=== PATIENT | female | born 1995 | race Hispanic/Latino ===

== ENCOUNTER → 2016-12-15 | Day surgery (SDC) | payer MEDICAID, OTHER ==
[~2016-12-15] MED LIST: FLU VACC QS2017-18 36 mo. & older 0.5 ML SYRINGE IM ONE
[2016-12-15 15:54] VITALS: BMI 41.8
--- NOTE | 2016-12-15 17:48 | PRG ---
DATE OF SERVICE: 12/15/2016 PRESENTING COMPLAINT: Suprapubic pain and pressure, I wanted to get baby checked on. HISTORY OF PRESENT ILLNESS: Ms. Khan is a 21-year-old primigravida with EDC of 01/08/2017 placi ng her at 36 weeks and 6 days. She received her antepartum care in [place], [place]. Has been visitin g her mother here in [facility] over the past 3 weeks. She is returning to [place] in apr oximately 6-7 days. She presents complaining of mild contractions and pressure in her pelvis and ac tive fetus. She is concerned about her baby since she has not been keeping her OB visits in [place]. 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 She does not know her blood ty pe. PAST MEDICAL HISTORY: Obesity. PAST SURGICAL HISTORY: Gastric bypass. SOCIAL HISTORY: Denies tobacco, alcohol, IV drug abuse. ALLERGIES: Denies. MEDICATIONS: vitamins. FAMILY HISTORY: Noncontributory. PHYSICAL EXAMINATION: GENERAL: female in no acute distress. Vital signs: Initial pulse was 120, current pulse 98, respirations 18, temperature 98.2, blood pres sure 118/72. HEENT: Within normal limits. LUNGS: Clear to auscultation bilaterally. HEART: Regular rate and rhythm. ABDOMEN: Soft and nontender with a fundal height of 37 cm. FHTs are 140s. PELVIC: Vulva is without lesions. Vagina is without discharge. Cervix is fingertip long, and high , cephalic blots with ease. No fluid noted. EXTREMITIES: Without clubbing, cyanosis or edema. IMAGING: monitoring was carried out for 20 minutes, which revealed a category 1 heart r ate tracing. No contractions, baseline was 130s to 140s, positive accelerations to 160s to 180s. IMPRESSION: Third trimester, insufficient care, out of town care. PLAN: Labor precautions, group B strep collected, patient instructed that the best course of action would be to return home and continue follow up with her OB in [place].
== END ==
LOC: L&D/OP 14:11
PROVIDERS: ATTEND Obstetrics & Gynecology
DX: O09.33 Supervision of pregnancy with insufficient antenatal care, third trimester (principal); O99.89 Other specified diseases and conditions complicating pregnancy, childbirth and the puerperium; R10.30 Lower abdominal pain, unspecified; O99.213 Obesity complicating pregnancy, third trimester; E66.9 Obesity, unspecified; Z68.41 Body mass index [BMI] 40.0-44.9, adult; Z79.899 Other long term (current) drug therapy; Z3A.36 36 weeks gestation of pregnancy; Z98.84 Bariatric surgery status
CPT/HCPCS: 87081

== ENCOUNTER 2019-07-28 21:07 | Emergency (ER) | payer MEDICAID, SELFPAY ==
[2019-07-28 22:18] LABS: #Basophils 0.1 thou/uL (0.0-0.2); #Monocytes 0.6 thou/uL (0.11-0.59); #Neutrophils 2.7 thou/uL (1.40-6.50); %Basophils 1.6 % (0.0-1.0); %Eosinophils 0.9 % (0.0-10.0); %Lymphocytes 36.9 % (21.0-51.0); %Monocytes 10.7 % (0.0-10.0); %Neutrophils 49.9 % (42.0-75.0); Hemoglobin 7.4 g/dL (12.0-16.0); Hypochromia SLIGHT = 6-15 cells (100X) (0-5/hpf); MDiff Complete? YES; Mean Corpuscular HGB CONC 28.6 g/dL (32.0-36.0); Mean Platelet Volume 11.3 fL (7.4-10.4); Microcytosis SLIGHT = 6-15 cells (100X) (0-5/hpf); Platelet Count 336 thou/uL (130-400); Platelet Morphology Comment Appears Adequate; RBC Distribution Width 17.9 % (11.5-14.5); White Blood Cell (WBC) Count 5.4 thou/uL (4.8-10.8)
[2019-07-28 22:25] LABS: ALT (SGPT) 18 U/L (8-55); AST (SGOT) 27 U/L (5-34); Albumin 4.1 g/dL (3.5-5.0); Alkaline Phosphatase 63 U/L (40-110); Anion Gap 12 mmol/L (10-20); BUN (Urea Nitrogen) 11 mg/dL (7.0-18.7); Bilirubin, Total 0.2 mg/dL (0.2-1.2); Calc. Creatinine Clearance 0 mL/min (70-130); Calcium 8.5 mg/dL (7.8-10.44); Carbon Dioxide 23 mmol/L (22-29); Chloride 107 mmol/L (98-107); Estimated GFR-MDRD Greater than 90; Globulin 3.1 g/dL (2.4-3.5); Glucose 81 mg/dL (70-105); Lipase 40 U/L (8-78); Potassium 4.3 mmol/L (3.5-5.1); Protein, Total 7.2 g/dL (6.0-8.3); Sodium 138 mmol/L (136-145)
[2019-07-28 23:09] LABS: Bilirubin Negative (Negative); Blood, Urine Negative (Negative); Clarity Clear (Clear); Glucose, Urine (Dipstick) Normal (Negative); Leukocyte Negative Leu/uL (Negative); Nitrite Negative (Negative); Protein, Urine (Dipstick) Negative (Neg-Trace); Urobilinogen Normal mg/dL (Less than 2)
[2019-07-28 23:10] LABS: Pregnancy Test - Urine (BHCG) Negative (Negative); Pregu Control Background? CLEAR/WHITE (CLR/WHITE); Pregu Control Bar Appear? YES (CONTROL BAR); Specific Gravity 1.023 (1.002-1.036)
== END 2019-07-28 23:36 | disposition home or self-care (01) ==
LOC: ERS 21:07
DX: D64.9 Anemia, unspecified (principal); R10.13 Epigastric pain; F17.210 Nicotine dependence, cigarettes, uncomplicated
CPT/HCPCS: 36415; 80053; 81003; 81025; 83690; 85025; 85060; 99284

== ENCOUNTER 2020-11-23 12:26 | Emergency (ER) | payer SELFPAY ==
[2020-11-23] MEDS ORDERED: Lidocaine 1% PF 5 ML VIAL ONE (13:22)
== END 2020-11-23 14:17 | disposition home or self-care (01) ==
LOC: ERS 12:26
DX: N61.1 Abscess of the breast and nipple (principal); F17.210 Nicotine dependence, cigarettes, uncomplicated
CPT/HCPCS: 10160

== ENCOUNTER 2023-09-29 21:53 | Emergency (ER) | payer SELFPAY ==
[2023-09-29 22:18] LABS: #Basophils 0.03 10x3/uL (0.0-0.2); %Basophils 0.5 % (0.0-1.0); %Lymphocytes 27.2 % (21.0-51.0); %Monocytes 11.2 % (0.0-10.0); %Neutrophils 59.9 % (42.0-75.0); Hematocrit 30.9 % (36.0-47.0); Hemoglobin 10.3 g/dL (12.0-16.0); Mean Corpuscular HGB CONC 33.3 g/dL (32.0-36.0); Mean Corpuscular Hemoglobin 29.4 pg (27.0-31.0); Mean Corpuscular Volume 88.3 fL (78.0-98.0); Mean Platelet Volume 8.4 fL (7.4-10.4); Platelet Count 260 10x3/uL (130-400); RBC Distribution Width 13.3 % (11.5-14.5)
[2023-09-29 22:32] LABS: ALT (SGPT) 19 U/L (8-55); AST (SGOT) 23 U/L (5-34); Albumin 2.9 g/dL (3.5-5.0); Alkaline Phosphatase 70 U/L (40-110); Anion Gap 13 mmol/L (10-20); BUN (Urea Nitrogen) 8 mg/dL (7.0-18.7); Bilirubin, Total 0.3 mg/dL (0.2-1.2); Calc. Creatinine Clearance 0 mL/min (70-130); Calcium 8.1 mg/dL (7.8-10.44); Carbon Dioxide 21 mmol/L (22-29); Chloride 106 mmol/L (98-107); Estimated GFR 112; Globulin 3.5 g/dL (2.4-3.5); Glucose 74 mg/dL (70-105); Potassium 3.7 mmol/L (3.5-5.1); Protein, Total 6.4 g/dL (6.0-8.3); Sodium 136 mmol/L (136-145)
[2023-09-30 04:52] LABS: Bacteria/HPF None Seen HPF (None Seen); Bilirubin Negative (Negative); Blood, Urine Negative (Negative); CAUTI Indications for Culture Pelvic or flank pain; Clarity Clear (Clear); Glucose, Urine (Dipstick) Normal (Negative); Ketone, Urine Negative (Negative); Leukocyte Negative Leu/uL (Negative); Nitrite Negative (Negative); Protein, Urine (Dipstick) 30 mg/dL (Neg-Trace); RBC/HPF 0-3 HPF (0-3); Specific Gravity, Urine 1.035 (1.002-1.036); Squamous Epithelial 0-3 HPF (0-3); Urobilinogen Normal mg/dL (Less than 2); WBC/HPF 0-3 HPF (0-3); pH, Urine 6.5 (5.0-9.0)
[2023-09-30 04:53] LABS: Urine Culture Reflex No No
== END 2023-09-30 03:50 | disposition home or self-care (01) ==
LOC: ERS 21:53
DX: O99.891 Other specified diseases and conditions complicating pregnancy (principal); R10.33 Periumbilical pain; R10.13 Epigastric pain; R11.0 Nausea; O99.332 Smoking (tobacco) complicating pregnancy, second trimester; F17.210 Nicotine dependence, cigarettes, uncomplicated; Z3A.22 22 weeks gestation of pregnancy
CPT/HCPCS: 36415; 76815; 80053; 81001; 84702; 85025; 86900; 86901